=== PATIENT | female | born 1940 | race Caucasian/White ===

== ENCOUNTER 2023-02-23 11:23 | Inpatient (IN) | payer MEDICARE, OTHER ==
[~2023-02-23] VITALS: Ht 175.3 cm; Wt 72.3 kg
[2023-02-23] MEDS ORDERED: K-TAB ER20 MEQ PO (11:43)
[2023-02-23] MEDS ORDERED: ALTOPREV20 MG PO (11:43)
[2023-02-23] MEDS ORDERED: TRIAMTERENE-HC1 EAC3 PO (11:43)
[2023-02-23] MEDS ORDERED: LISINOPRIL20 MG PO (11:43)
[2023-02-23] MEDS ORDERED: FISH OIL 1,0001 EACH PO (11:44)
[2023-02-23] MEDS ORDERED: CALCIUM + D3 E1 EACH PO (11:44)
[2023-02-23 11:48] LABS: BASOPHILS 0.1 % (0-2); EOSINOPHILS 0.1 % (0-6); HEMATOCRIT 42.2 % (35.0-50.0); HEMOGLOBIN 14.2 g/dL (12.0-18.0); LYMPHOCYTES 3.3 % (24-44); MCH 30.5 (27-36); MCHC 33.6 g/dl (30-36); MCV 90.8 fl (81-99); MONOCYTES 2.2 % (0-12); NEUTROPHILS 94.3 % (39-80); PLATELET COUNT 218 K/uL (140-440); RBC 4.65 M/ul (4.3-5.7); RDW 15.2 (10.5-15.0)
[2023-02-23 12:09] LABS: ALBUMIN 2.3 g/dL (3.4-5.0); ALBUMIN/GLOBULIN RATIO 0.55 (1.1-2.4); ANION GAP 12.4 (7-21); BILIRUBIN, TOTAL 0.4 ng/dL (0.2-1.0); BUN/CREATININE RATIO 20.9 (6.0-28.6); CALCIUM 9.5 mg/dL (8.5-10.1); CREATININE, SERUM 1.1 mg/dL (0.55-1.02); MAGNESIUM 1.7 mg/dL (1.8-2.4); POTASSIUM 4.4 mmol/L (3.5-5.1); PROTEIN, TOTAL 6.5 g/dL (6.4-8.2)
[2023-02-23 12:51] LABS: INFLUENZA B NAA NEGATIVE (NEGATIVE); RESPIRATORY SYNCYTIAL VIR NAA NEGATIVE (NEGATIVE)
--- OUTSIDE RECORDS SUMMARY | 2023-02-23 14:08 | XMS ---
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 - 2 Visits in 30 Days CARE PROVIDERS AVINASH ZELAYA Family [facility] Current PHONE: Unknown MICHEL BARRIOS [facility]: Critical access hospital PHONE: Unknown STEFANI DUBOSE Family Medicine Current PHONE: Unknown Wilbert has no Care Guidelines for this patient. Silvio VISIT COUNT (12 MO.) [address] [place] [id number] BERNIE Graf TOTAL 3 NOTE: Visits indicate total known visits. ED/UCC VISIT TRACKING (12 MO.) 02/23/2023 11:25 [facility] [place] TYPE: Emergency COMPLAINT: - UTI, AMS, NO BOWEL FUNCTIONS, COUGH 02/15/2023 12:42 [facility] DREA DAY OR TYPE: Emergency 02/14/2023 17:35 [facility] DAY OR TYPE: Emergency INPATIENT VISIT TRACKING (12 MO.) No inpatient visits to display in this time frame [email or web address]
[2023-02-23 14:56] LABS: BILIRUBIN, URINE NEGATIVE (negative); BLOOD/HGB, URINE NEGATIVE (Negative); KETONE, URINE TRACE (Negative); LEUK ESTERASE, URINE NEGATIVE (negative); NITRITE, URINE NEGATIVE (negative)
[2023-02-23 15:05] LABS: CRYSTALS, URINE CALCIUM OXALATE 1+ (0-1+); EPITHELIAL CELLS, URINE SQUAMOUS 1+ /lpf (0-1+)
[2023-02-23 15:06] LABS: BACTERIA, URINE NONE SEEN /hpf (negative); CASTS, URINE NONE SEEN \\lpf; COLLECTION TYPE, URINE CLEAN CATCH; REFLEX CULTURE, URINE No (No)
[2023-02-23 18:49] VITALS: BP 123/62
--- NOTE | 2023-02-23 18:57 | NUR ---
RECEIVED REPORT FROM ED AT 1835. PATIENT BROUGHT TO THE FLOOR AT 1840 AND ADMISSION ASSESSMENT STARTED. X-RAY CMAE TO THE ROOM AT 1856. PATIENT STATED NO NEEDS AT THIS TIME. CALL LIGHT AND PERSONAL BELONGINGS ARE WITHIN REACH.
--- NOTE | 2023-02-23 20:32 | NUR ---
Patient is awake, alert and oriented x4. 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 Patient denies pain at this time. Patient is on 3L oxygen per nc, respirations non labored. Patient has a notable, loose/harsh cough. Patient has a pure wick in place. Call light within reach of patient. No current needs.
[2023-02-23 21:42] VITALS: BP 102/60
--- NOTE | 2023-02-24 00:57 | NUR ---
Patient has not voided yet. bladder scan for 683ml. Called Dr. Borjas to place hudson catheter at this time.
--- NOTE | 2023-02-24 01:23 | NUR ---
REPORT FROM CHAIM Stahl RN, PT ALERT AND ORIENTED TO QUESTIONS DISCUSSED NEED FOR ROLDAN CATHETER WITH PATIENT AT BEDSIDE REPORT. PATIENT AGREEABLE TO THIS.
--- NOTE | 2023-02-24 01:30 | NUR ---
ROLDAN CATHETER PLACED STERILE PROCEDURE MAINTAINED THROUGHTOUT PROCEDURE, PATIENT TOLERATED WELL, 10ML STERILE WATER PLACED TO BALLOON SCUREMENT. 1000ML URINE RETURNED.
--- NOTE | 2023-02-24 01:36 | NUR ---
CALLED TO DISCUSS WITH PATIENT REPORTING ACID REFLUX AT THIS TIME, HE SAID SHE IS MORE LIKLY ASPIRATING, OK TO GIVE PROTONIX 40MG IV AT THIS TIME.
[2023-02-24 02:09] VITALS: BP 114/61
[2023-02-24 05:48] LABS: BASOPHILS 0.1 % (0-2); EOSINOPHILS 0.1 % (0-6); HEMATOCRIT 36.2 % (35.0-50.0); HEMOGLOBIN 11.9 g/dL (12.0-18.0); LYMPHOCYTES 3.1 % (24-44); MCHC 32.9 g/dl (30-36); MCV 91.1 fl (81-99); MONOCYTES 2.5 % (0-12); NEUTROPHILS 94.2 % (39-80); PLATELET COUNT 168 K/uL (140-440); RBC 3.97 M/ul (4.3-5.7); RDW 15.2 (10.5-15.0)
[2023-02-24 05:56] VITALS: BP 106/55
[2023-02-24 05:57] LABS: ANION GAP 13.2 (7-21); BUN/CREATININE RATIO 24.03 (6.0-28.6); CALCIUM 8.9 mg/dL (8.5-10.1); CREATININE, SERUM 1.29 mg/dL (0.55-1.02); POTASSIUM 4.2 mmol/L (3.5-5.1)
--- NOTE | 2023-02-24 06:18 | NUR ---
PATIENT REPOSITIONED, LINENS CHANGED, NO NEW BLEEDING OR DRAINAGE NOTED. PATIENT ALERT AND REACHING/GRABBING FOR ROLDAN TUBE AND IV LINE, SHE GRABBED HAND THIS RN HANDS AND WOULD NOT LET GO WHEN ASKED, PATIENT TRIED TO SIT UP OUT OF BED, IV HALDOL PRN ADMINISTERED FOR AGITATION. SPOUSE AT BEDSIDE.
--- NOTE | 2023-02-24 06:46 | NUR ---
PATIENT REPOSITIONED AND BOOSTED UP IN BED. SHE HAS NO REQUESTS AT THIS TIME
--- NOTE | 2023-02-24 07:13 | NUR ---
VERBAL BEDSIDE REPORT RECEIVED FROM TIANNA SOTO. PT RESTS IN BED WITH EYES CLOSED, RESP EVEN AND UNLABORED. CONTINUOUS PULSE OXIMETER IN PLACE, PT SATS 91% ON RA, PULSE 76.
--- NOTE | 2023-02-24 09:32 | NUR ---
PHYSICAL THERAPY IN ROOM WORKING WITH PT.
--- NOTE | 2023-02-24 09:57 | NUR ---
SPUTUM SAMPLE COLLECTED AND SENT TO LAB.
--- NOTE | 2023-02-24 10:45 | NUR ---
Spoke with pt while she is wearing head phone hearing device. Pt speaks very slowly, able to understand if she can read my lips. Pt lives in [place] with her spouse. Spouse, DIL, and son assist patient every day with ADLS. Pt has walker, wc, ramp, raised toilet seat, shower chair, and grab bars. She is unable to remember if she has other DME. Family complete all the cooking, cleaning, shopping, and personal care for pt. Pt states she is unable to walk outside the house with her walker unless she has 1-2 people assisting her. Son and DIL live next door. Pt states they do use the food bank, they do not qualify for food stamps. They have no issues paying their utility bills. Pt plans on dc to home. Per MD and PT, they feel pt will need a SNF. I will discuss with family when they visit.
[2023-02-24 10:51] VITALS: BP 102/55
--- NOTE | 2023-02-24 10:58 | NUR ---
1028 - PHYSICAL THERAPIST REPORTS PT HAS DROOLING DURING ACTIVITY, WHICH THE PT REPORTS IS NEW FOR HER IN THE PAST FEW WEEKS. NIH COMPLETED. 1030 -CASE MANAGEMENT AND INTO SEE PT. MRI OF HEAD ORDERED. NIH SCORE OF 4 REPORTED TO .
--- NOTE | 2023-02-24 11:09 | NUR ---
MRI QUESTIONAIRE COMPLETED.
--- NOTE | 2023-02-24 11:18 | NUR ---
MS ROUNDS. SHORT VISIT. PATIENT NONCOMMUNICATIVE. PROVIDED PRAYER.
--- NOTE | 2023-02-24 11:27 | NUR ---
MS BARNEY. 15 MINUTES. PT USES POCKET TALKER TO HEAR BETTER. ABLE TO FOLLOW CONVERSATION. RESPONDES WERE SITUATIONALLY APPROPRIATE. PROVIDED HOSPITALITY. FACILITATED STORY TELLING. PROVIDED PRAYER.
--- NOTE | 2023-02-24 11:45 | NUR ---
PT TO IMAGING DEPARTMENT VIA WHEEL CHAIR FOR MRI.
--- NOTE | 2023-02-24 12:05 | NUR ---
Pt back from MRI, hany Ortega and Jose assisted this RN with transferring pt from MRI bed to hospital bed (pt able to assist by scooting across). HOB placed in position of comfort, call light, bedside table, and personal belongings in reach. Pt denied further needs at this time. SPO2 94% on room air at this time.
--- NOTE | 2023-02-24 13:05 | NUR ---
IS PROVIDED AT BEDSIDE. PT INSTRUCTED ON USE, VERBALIZES UNDERSTANDING.
[2023-02-24 14:38] VITALS: BP 104/58
--- NOTE | 2023-02-24 14:52 | EKG ---
[facility] [address] [place], [place] [address] Signed Normal sinus rhythm Nonspecific ST and T wave abnormality Abnormal ECG No previous ECGs available Confirmed by HERIBERTO TAVERAS MD ([id number]) on 02/24/2023 2:51:53 PM Electronically Signed By: HERIBERTO TAVERAS 02/24/23 1452 PATIENT NAME: MELCELENA LEE Electrocardiogram DATE OF : 38 PHYSICIAN: HERIBERTO TAVERAS REPORT #: [id number] REPORT IS CONFIDENTIAL AND NOT TO BE RELEASED WITHOUT AUTHORIZATION
--- NOTE | 2023-02-24 15:32 | NUR ---
SPOKE WITH DR TAVERAS REGARDING LEAKING IV. SAID HE WILL CHANGE HER TO PO AB AND SL. MAY TAKE OUT IV.
--- NOTE | 2023-02-24 16:17 | NUR ---
PT SITS UP IN, AWAKE AND ALERT. PT REQUESTS TO CALL SPOUSE, AUBREY. PHONE PROVIDED. NO FURTHER REQUESTS AT THIS TIME. CALL LIGHT IN REACH. BED IN LOW POSITION, BREAKS ON BED.
--- NOTE | 2023-02-24 16:51 | NUR ---
VANILLA PUDDING PROVIDED NEEDED PRIOR TO TAKING ORAL ANTIBIOTICS, eMAR.
--- NOTE | 2023-02-24 17:20 | NUR ---
medications reconciled using pharmacy records and patient interview
[2023-02-24 18:52] VITALS: BP 101/65
--- NOTE | 2023-02-24 20:26 | NUR ---
RN RECIEVED BEDSIDE REPORT. PT IS RESTING IN BED. VS COLLECTED AND REVIEWED. PT DENIES ANY PAIN AT THIS TIME. PT REFUSES REPOSITION AT THIS TIME. ROLDAN CATHETER CARE COMPLETED. GENERAL ASSESSMENT COMPLETED. ALL QUESTIONS AND CONCERNS ADDRESSED. CALL LIGHT IS WITH IN REACH. BED IS LOWERED AND IN LOCKED POSITION. BED ALARM IS ON AND GAURD RAILS ARE UP WITH PT REQUEST.
[2023-02-24 20:30] VITALS: BP 104/65
--- NOTE | 2023-02-24 21:36 | NUR ---
REMAINS ON RA, TAKING OFF RT SERVICE. PLEASE CALL WITH CONCERNS OR O2 USE.
--- NOTE | 2023-02-24 22:00 | NUR ---
PT IS RESTING IN BED. NO COMPLAINTS OF PAIN. PT REPOSITIONED. ALL QUESTIONS AND CONCERNS ADDRESSED. CALL LIGHT WITH IN REACH. BED IS LOWERED AND LOCK. / GAURD RAILS UP IN PLACE PER PT REQUEST. ROLDAN CATHETER EMPTYED.
--- NOTE | 2023-02-25 00:26 | NUR ---
PT IS RESTING IN BED. NO COMPLAINTS OF PAIN AT THIS TIME. CALL LIGHT IS WITH IN REACH. ALL CONCERNS AND NEEDS ADDRESSED AT THIS TIME. BED IS LOWERED AND LOCKED. BEDSIDE RAILS ARE UP PER PT REQUEST, BED ALARM IS ON.
--- NOTE | 2023-02-25 02:22 | NUR ---
PT IS RESTING IN BED. PT REPOSITIONED. ROLDAN EMPTIED. PT DENIES PAIN. ALL QUESTIONS AND CONCERNS ADDRESSED. CALL LIGHT WITH IN REACH. BED IS LOWERED AND LOCKED. 4/4 SIDE RAILS UP PER PT REQUEST.
--- NOTE | 2023-02-25 04:05 | NUR ---
PT IS RESTING IN BED. NO COMPLAINTS OF PAIN AT THIS TIME. CALL LIGHT WIHT IN REACH. BED IS IN A LOWERED AND LOCKED POSITION. 06/[address]
[2023-02-25 05:16] VITALS: BP 126/81
--- NOTE | 2023-02-25 06:30 | NUR ---
PT IS UP TO COMMODE, AND THEN UP TO CHAIR. CHAIR ALARM IS ON AND IN PLACE. PT IS ALERT THIS MORNING. HAD A SMALL BOWEL MOVEMENT. VS REVIEWED. CALL LIGHT IN REACH. NON SLIP SOCKS ON. NO COMPLAINTS OF PAIN AT THIS TIME. ALL QUESTIONS AND CONCERNS ADDRESSED.
--- NOTE | 2023-02-25 07:41 | NUR ---
REPORT RECEIVED FROM TIANNA GONZALES. PT UP TO CHAIR, DENIES PAIN AND NAUSEA. CONTIUES TO COUGH WITH SWALLOWING. DR ATVERAS UPDATED, NO NEW ORDERS A THIS TIME. CALL LIGHT WITHIN REACH. THIS RN ASSUMING CARE OF PT WITH TIANNA CHAU.
--- NOTE | 2023-02-25 07:41 | NUR ---
RECIEVED REPORT FROM TIANNA GONZALES. PT UP TO CHAIR AWAKE AND ALERT. PT STATES NO NEEDS AT THIS TIME, CALL LIGHT WITHIN REACH, FOOT OF CHAIR UP. ASSUMING CARE OF PT WITH TIANNA CHO.
--- NOTE | 2023-02-25 08:08 | NUR ---
PT REPORTS SHE HAS ONGOING DIFFICULITY WITH SWALLOWING "EVEN MY OWN SPIT." "SOMETIMES I CAN SPIT IT OUT BUT SOMETIMES IT GOES DOWN BEFORE I CAN GET IT OUT." MARSHES SIDING SWALLOW STUDY COMPLETED. PT UNABLE TO DEMONSTRATE DRY SWALLOWING. PT ATTEMPTS A SIP OF WATER AND BEINGS CHOAKING/COUGHING. FACE TURNS BRIGHT READ. SUCTION APPLIED TO ASSIST PT WITH CLEARING FLUIDS. PT CATCHES BREATH AND STATES "THAT HAPPENS ALL THE TIME." DR TAVERAS UPDATED. ORDERS GIVEN TO MAKE PT NPO. NEW IV MEDICATION ORDERS GIVEN, ORDERS ENTERED BY TIANNA CHO, REPEAT BACK PERFORMED. IV STARTED BY TIANNA CHO (SEE VASCULAR ACCESS). IVF STARTED PER ORDER. 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 PT CONTINUES TO HAVE GENERALIZED WEAKNESS, NO DIFFERENCE IN LEFT OR RIGHT SIDE. GRASP EQUAL IN BOTH HANDS. LUNG SOUNDS COARSE IN ALL LOBES, PT CONTINUES TO HAVE LOOSE PRODUCTIVE COUGH OF THICK YELLOW SPUTUM, EMESIS BAG AT BEDSIDE FOR SECRETIONS. PULSES STRONG IN ALL EXTREMETIES, +1 PITTING EDEMA REMAINS IN BLE. EXTREMETIES CONTINUE TO BE COOL TO THE TOUCH. BOWEL TONES HYPOACTIVE, LAST BM 02/22/23. PT DENIES HAVING ANY NAUSEA. ROLDAN IN PLACE, MARJORIE AREA WNL, QUANITITY SUFFICIENT CLEAR YELLOW URINE DRAINING VIA GRAVITY. PT SKIN INTACT WITH SCATTERED SMALL BRUISES. PT STATES NO FURTHER NEEDS AT THIS TIME, CALL LIGHT WITHIN REACH, FOOT OF CHAIR RAISED.
--- NOTE | 2023-02-25 08:40 | NUR ---
IV STARTED PER PROTOCOL. PT TOLERATED WELL. BRISK BLOOD RETURN SEEN FROM IV SITE. IV MEDICAITONS STARTED, FLUIDS TO FOLLOW. PT DENIES ADDITIONAL REQUESTS OR COMPLAINTS. PT UPDATED ON PLAN OF CARE AND NPO STATUS. CALL LIGHT WITHIN REACH. BED RAILS UP.
[2023-02-25 09:02] VITALS: BP 113/59
--- NOTE | 2023-02-25 09:10 | NUR ---
IV PUMP ALARMING. 1ST IV ABX COMPLETE. FLAGYL CONTINUES TO INFUSE. PT REMAINS UP TO CHAIR. PHSYCIAL THERAPY TO BEDSIDE TO WORK WITH PT. PT DENIES REQUESTS OR COMPLAINTS. CALL LIGHT WITHIN REACH.
--- NOTE | 2023-02-25 10:32 | NUR ---
HOURLY ROUNDING: PT UP TO CHAIR, FINISHING WORKING WITH OCCUPATIONAL THERAPY. PT REPORTS THRIST. BUT IS UNABLE TO SAFELY SWALLOW, MOUTH SWABS PROVIDED. PT UDPATED ON PLAN OF CARE AND PLAN FOR CARE CONFERENCE ONCE FAMILY ARRIVES. PT VERBALIZES UNDERSTANDING. PT DENIES ADDITIONAL REQUESTS OR COMPLAINTS. CALL LIGHT WITHIN REACH. PT REMAINS UP TO CHAIR.
--- NOTE | 2023-02-25 10:38 | NUR ---
Met with pt, spouse, and their friend Shweta. Pt consents to Shweta presence for discussion. Dr Zepeda explained pt has aspiration when eating. Gave options of IV nutrition or tube feeding. Pt is wearing her headphone hearing device. We stopped the conversation twice to ask pt if she agrees. is stating pt will have a feeding tube. Dr. Zepeda aswered questions and pt agrees she would like a feeding tube. He then discussed need for PT/OT as pt is deconditioned and requires 1-2 person assist to walk with her walker. Pt is in agreement. We discussed the SNF in [place] and they would like Kristie to go there on dc. Dr. Zepeda will contact Dr. Kelly for referral for Peg tube placement.
--- NOTE | 2023-02-25 10:48 | NUR ---
DR TAVERAS AND NEL, RN FROM CASE MANAGEMENT AT THE BEDSIDE TO DISCUSS PLAN OF CARE WITH PT AND FAMILY, FAMILY STATES IS OKAY TO DISCUSS PLAN OF CARE WITH FAMILY MEMBERS PRESENT. HEARING ASSISTIVE DEVICES USED BY PT DURING CONVERSATION. PT STATES NO NEEDS AT THIS TIME, CALL LIGHT WITHIN REACH, FOOT OF CHAIR RAISED, FAMILY AT THE BEDSIDE.
--- NOTE | 2023-02-25 11:10 | NUR ---
Called [facility] in [place]. They only take medicaid and self pay patients. She suggest I call [facility] or [facility] at 1-2 hrs farther than [place]. I called [facility] and they no longer have a SNF. They have a swingbed program, they are full and on divert. I called [facility]. They have a bed open, I faxed the chart [phone]. I returned and spoke with Aime and Jj. They requested I also try [facility] in [place]. Let them know [facility] may not have beds open at this time. I will contact both and check for bed. I also called [facility] and their SNF has closed. [facility] replied and they do not have beds. [facility] may have beds open on . Chart faxed to .
--- NOTE | 2023-02-25 11:15 | NUR ---
UR NOTE [facility] GENERAL OBSERVATION CARE (ISC) 02/24/23 MET OBSERVATION CARE ADMISSION CRITERIA [facility] PNEUMONIA DUE TO ASPIRATION ([facility]) INPATIENT 02/25/23 MET CLINICAL INDICATIONS FOR ADMISSION TO INPATIENT CARE GL DAY 1
--- NOTE | 2023-02-25 11:40 | NUR ---
MS ROUNDS. CASE MANAGEMENT IN WITH PATIENT. DID NOT INTERRUPT. PROVIDED PRAYER.
--- NOTE | 2023-02-25 12:07 | NUR ---
HOURLY ROUNDING. PUMP ALARMING, IV ABX COMPLETED, IVF STARTED PER ORDER. PT STATES NO FURTHER NEEDS AT THIS TIME, CASE MANAGEMENT AND FAMILY AT THE BEDSIDE. CALL LIGHT WITHIN REACH, FOOT OF CHAIR RAISED.
--- NOTE | 2023-02-25 12:10 | NUR ---
Called and spoke with pts son Bradley, and JEWEL Esposito. UPdate given. They are in agreement pts plan.
--- NOTE | 2023-02-25 13:06 | NUR ---
AFTERNOON ASSESSMENT. PT DENIES PAIN OR NAUSEA AT THIS TIME. SWALLOWING UNCHANGED FROM MORNING ASSESSMENT. PT IS FORGETFUL AT TIMES REGARDING PLAN, REORIENTED NEEDED. PT CONTINUES TO HAVE SOME DIFFICULTY FINDING WORDS AT TIMES. WEAKNESS IN ALL EXTREMETIES REMAINS, PT DENIES NUMBNESS OR TINGLING. PARTIAL GAZE PAULSY IN R EYE REMAINS UNCHANGED. LUNG SOUNDS CLEAR THIS AFTERNOON, PT CONTINUES TO COUGH, STATES SPUTUM PRODUCTION IS "ABOUT THE SAME". BOWEL TONES CONTINUE TO BE HYPOACTIVE. PT CONTINUES TO BE NPO, IVF CONTIUOUS PER ORDER, PT AND FAMILY UPDATED ON PLAN OF CARE, VERBALIZE UNDERSTANDING. ROLDAN CATHETER IN PLACE DRAINING QUANTITY SUFFICIENT CLEAR YELLOW URINE VIA GRAVITY. NO CHANGE IN SKIN SINCE MORNING ASSESSMENT. PT STATES NO FURTHER NEEDS AT THIS TIME, CALL LIGHT WITHIN REACH, FOOT OF CHAIR RAISED.
--- NOTE | 2023-02-25 14:23 | NUR ---
HOURLY ROUNDING AND MEDICATION DUE, GIVEN (SEE EMAR). PT UP TO CHAIR READING, DENIES PAIN OR NAUSEA. PT STATES NO NEEDS AT THIS TIME, CALL LIGHT WITHIN REACH, FOOT OF CHAIR RAISED.
[2023-02-25 14:25] VITALS: BP 132/77
--- NOTE | 2023-02-25 14:52 | NUR ---
PT HERE FOR LEUKOCYTOSIS. PT AMBULATING TO CHAIR VIA SBA W/FWW AND X2 PERSON ASSIST W/FWW TO THE BATHROOM. BEDSIDE SWALLOW EVAL DONE THIS SHIFT, PT UNABLE TO PASS EVAL, DIET CHANGED TO NPO. LAST BM 02/22/23, SCANT AMOUNT WITH CANVASS MANAGER REPORTED THIS MORNING. NIH SCORE OF 3 TODAY FOR MILD EXPRESSIVE APHASIA, PARTIAL GAZE PAULSY. ROLDAN CATHETER IN PLACE DRAINING QUANTITY SUFFICIENT CLEAR YELLOW URINE VIA GRAVITY. IV PLACED IN R FOREARM THIS SHIFT, IVF STARTED PER ORDER, IV ABX GIVEN PER ORDER (SEE EMAR). PEG TUBE PLACEMENT ANTICIPATED FOR TOMORROW. MEETING WITH DR TAVERAS, CASE MANAGEMENT AND FAMILY THIS MORNING, CASE MANAGEMENT WORKING TO FIND PLACEMENT FOR REHABILITATION AFTER DISCHARGE. PT USES CALL LIGHT APPROPRIATELY.
--- NOTE | 2023-02-25 15:53 | NUR ---
HOURLY ROUNDING. PT UP TO CHAIR READING. STATES SHE FELL ASLEEP FOR "A LITTLE BIT IN THE CHAIR AND DIDN'T KNOW WHERE I WAS AT FIRST WHEN I WOKE UP". PT STATES NO NEEDS AT THIS TIME, CALL LIGHT WITHIN REACH, FOOT OF CHAIR RAISED.
--- NOTE | 2023-02-25 17:05 | NUR ---
HOURLY ROUNDING. PT UP TO CHAIR READING, REQUESTS HELP CALLING DAUGHTER IN [place] ON HOSPITAL PHONE, THIS RN ASSISTS PT WITH DIALING NUMBER TO CALL. PT STATES NO FURTHER NEEDS AT THIS TIME, CALL LIGHT WITHIN REACH, FOOT OF CHAIR RAISED.
[2023-02-25 17:25] VITALS: BP 146/78
--- NOTE | 2023-02-25 17:50 | NUR ---
DIATHERMY EQUIPMENT REPAIRER REPORTS DIFFICULTY GETTING A TEMPERATURE READING FROM PT. DRIER BELT CONVEYOR, CHARLES, TO BEDSIDE, TEMPERATURE 95 DEGREES, TAKE IN MULTIPLE MODES (TYMPANIC, AXILLARY, ORAL, IN GROIN). WARM BLANKETS PLACED. BEAR HUGGER RETRIEVED FROM SURGERY AND PLACED. DR. TAVERAS CALLED. ORDERS GIVEN FOR BEAR HUGGER AND TSH LABS. NO ADDITIONAL NEW ORDERS AT THIS TIME. PT REMAINS ALERT AND OREINTED. REQUESTS TO GET BACK TO BED. 2 PERSON ASSIST PIVOT BACK TO BED. WARM BLANKETS REAPPLIED. PT REPORTS FEELING "COMFY." LAB TO BEDSIDE FOR LABS. NO ADDITIONAL REQUESTS OR COMPLAINTS. CALL LIGHT WITHIN REACH. BED RAILS UP.
--- NOTE | 2023-02-25 18:22 | NUR ---
THIS RN TO ROOM TO CHECK ON PT. PT REMAINS UNDER BLANKETS IN BED. PT REPORTS SHE DOES NOT FEEL COLD BUT THAT THE WARM BLANKETS "FEEL GOOD." WARMED BAG OF LR RETRIVED FROM ER AND HUNG TO REPLACE CURRENT BAG OF LR. PT CONTINUES TO DENY PAIN AND NAUSEA. NO COUGH HEARD AT THIS TIME. TEMPERATURE REASSESSED NOW 96.5 TEMPORALLY AND 94.7 ORALLY. PT DENIES ADDITIONAL REQUESTS OR COMPLAINTS. CALL LIGHT WITHIN REACH. BED RAILS UP.
--- NOTE | 2023-02-25 18:40 | NUR ---
LAB RESULTS IN. DR. TAVERAS CALLED AND UPDATED. NEW LAB ORDERS PLACED BY DR. TAEVRAS. NO ADDITIONAL NEW ORDERS. PT STATUS UNCHANGED.
--- NOTE | 2023-02-25 18:57 | NUR ---
DR TAVERAS UPDATED ON PT STATUS. PTS TEMPERATURE REMAINS LOW. NEW MEDICATION ORDERS PLACED, MEDICATIONS GIVEN (SEE MAR). ORDRES FOR TELEMETRY, ORDERS ENTERED, REPEAT BACK PERFORMED. TELEMETRY PLACED. PT STATUS UNCHANGED. PT UPDATED ON PLAN OF CARE. PT VERBALIZES UNDERSTANDING AND STATES HER QUESTIONS HAVE BEEN ANSWERED. CALL LIGHT WITHIN REACH. BED RAILS UP.
--- NOTE | 2023-02-25 19:10 | NUR ---
REPORT RECIEVED FROM MARQUIS WYNN AND KANDI WYNN. PATIENT RESTING IN BED WITH EYES CLOSED. IVF INFUSING PER ORDER. RESP OBSERVED. BOARD UPDATED. CALL LIGHT WITHIN REACH. NO NEEDS AT THIS TIME.
[2023-02-25 20:33] VITALS: BP 116/61
--- NOTE | 2023-02-25 20:56 | NUR ---
ASSESSMENT AND VITAL SIGNS DONE. PATIENT RESTING IN THE BED. ROLDAN EMPTIED. WARM IVF INFUSING. pt TEMP AT 94.5 RECTALLY, DR. TAVERAS AWARE. BARE HUGGER RUNNING UNDER BLANKETS. IV SITE, WNL. DR. TAVERAS STATED WE COULD USE A KPAD FOR THE PATIENT. CALL LIGHT WITHIN REACH. NO OTHER NEEDS AT THIS TIME.
--- NOTE | 2023-02-25 21:04 | NUR ---
Patient assisted from chair to bed with one person assist and FWW. tolerated well. continous pulse ox on and sats have remained >92%. Patient states he is comfortable, lights are out and call light within reach.
[2023-02-25 21:17] LABS: BASOPHILS 0.3 % (0-2); EOSINOPHILS 0.4 % (0-6); HEMATOCRIT 35.3 % (35.0-50.0); HEMOGLOBIN 11.8 g/dL (12.0-18.0); LYMPHOCYTES 9.3 % (24-44); MCH 30.1 (27-36); MCHC 33.4 g/dl (30-36); MCV 90.2 fl (81-99); MONOCYTES 4.1 % (0-12); NEUTROPHILS 85.9 % (39-80); PLATELET COUNT 178 K/uL (140-440); RBC 3.92 M/ul (4.3-5.7); RDW 15.2 (10.5-15.0)
[2023-02-25 23:58] VITALS: BP 123/61
--- NOTE | 2023-02-26 | NUR ---
ASSESSMENT AND VITAL SIGNS DONE. pt STATES SHE WOKE UP AND GOT SCARED BECAUSE SHE THOUGHT IT WAS NOON AND NO ONE WAS THERE. THIS RN REORIENTATED pt TO TIME, pt WAS THEN APPRECIATIVE AND WANTED TO SLEEP SOME MORE. CALL LIGHT WITHIN REACH. NO OTHER NEEDS AT THIS TIME. pt TEMP 98.7 ORALLY.
--- NOTE | 2023-02-26 00:58 | NUR ---
UPDATED DR. TAVERAS WITH pt CURRENT TEMP AND HR. THIS RN WILL CONTINUE TO MONITOR pt.
--- NOTE | 2023-02-26 01:34 | NUR ---
CHECKED IN ON PT, AWAKE, STATES SHE COUGHED AND MISSED THE EMESIS BASIN. CHANGED BLANKET, COVERED IN SHEET, SKIN WARM TO TOUCH, DRY. WITH HEARING ASSIST DEVICE, CONVERSATION WITH PT, EXPLAINED THE PLAN OF CARE, LABS THIS MORNING, SHE STATED SHE DIDN'T KNOW WHAT WAS GOING ON, WAS SCARED. EDUCATED ON WHAT WE KNEW, AND HOPING TO SEE WITH THE MORNING LABS. PT STATED SHE IS NOT SLEEPY, SAYS SHE FEELS LIKE SHE HAS BEEN ASLEEP "FOR A WEEK", READING BOOKS AND GLASSES WITHIN REACH, WELL THE SUCTION. PT USING SUCTION PRIOR TO THIS RN LEAVING. NO OTHER NEEDS
--- NOTE | 2023-02-26 01:52 | NUR ---
WENT IN pt RM TO CHECK ON pt, HER HR WAS AT 108 AND POSSIBLE ARTIFACT ON THE TELE. pt WAS CLEANING HER GLASSES AT THE TIME SO SHE COULD SEE BETTER TO READ HER BOOK. pt RESTING IN BED.
[2023-02-26 03:56] VITALS: BP 128/68
--- NOTE | 2023-02-26 04:00 | NUR ---
ASSESSMENT AND VITAL SIGNS DONE. ROLDAN EMPTIED. KPAD REMOVED. pt TEMP AT 98.3 AND HR AT 95. pt STATES SHE WANTS THE LIGHT TURNED OFF AND THE HEAD OF THE BED LOWERED. SUCTION AVAILABLE FOR PHLEGM. CALL LIGHT WITHIN REACH. HOB LOWERED AND LIGHT TURNED OFF. NO OTHER NEEDS AT THIS TIME.
[2023-02-26 05:17] LABS: BASOPHILS 0.3 % (0-2); EOSINOPHILS 0.2 % (0-6); HEMOGLOBIN 12.2 g/dL (12.0-18.0); LYMPHOCYTES 7.9 % (24-44); MCH 30.2 (27-36); MCHC 33.1 g/dl (30-36); MCV 91.1 fl (81-99); MONOCYTES 4.7 % (0-12); NEUTROPHILS 86.9 % (39-80); PLATELET COUNT 182 K/uL (140-440); RBC 4.06 M/ul (4.3-5.7); RDW 15.2 (10.5-15.0)
[2023-02-26 05:31] LABS: ALBUMIN 1.9 g/dL (3.4-5.0); ALBUMIN/GLOBULIN RATIO 0.54 (1.1-2.4); ANION GAP 14.7 (7-21); BILIRUBIN, TOTAL 0.4 ng/dL (0.2-1.0); BUN/CREATININE RATIO 25.19 (6.0-28.6); CREATININE, SERUM 1.31 mg/dL (0.55-1.02); POTASSIUM 3.7 mmol/L (3.5-5.1); PROTEIN, TOTAL 5.4 g/dL (6.4-8.2)
--- NOTE | 2023-02-26 05:50 | NUR ---
IV ABX INFUSING PER ORDER, SEE MAR. pt TEMP LOW IN BEGINNING OF SHIFT AT 94.5 RECTALLY, BEAR HUGGER AND KPAD PLACED AND NOW IT IS AT 98.[address] DUE TO RETENTION. 1-2 PA AT BASELINE. pt ABLE TO MOVE WELL IN THE BED. pt UP MOST OF THE NIGHT AND FORGETFUL.
--- NOTE | 2023-02-26 07:40 | NUR ---
REPORT RECIEVED FROM TIANNA METCALF. PT LYING IN BED AWAKE AND ORIENTED TO ALL. PT STATES NO NEEDS AT THIS TIME, CALL LIGHT WITHIN REACH, BED RAILS UP.
--- NOTE | 2023-02-26 08:15 | NUR ---
Updated by Dr. Zepeda and he would like this pt transferred to higher level of care if a bed is available due to her multiple comorbidities. Second plan would be for the pt to go to a SNF in the area of her choice with Neuro and endocrinology near. Called Pts spouse and he would like to speak with Dr. Zepeda. Texted Dr huynh and spouses phone number.
--- NOTE | 2023-02-26 08:26 | NUR ---
MORNING ASSESSMENT AND MEDICATIONS DUE, GIVEN (SEE EMAR). PT DENIES ANY PAIN OR NAUSEA AT THIS TIME. PT A+O TO ALL THIS MORNING, CONTINUES TO HAVE SOME TROUBLE FINDING WORDS, NEEDS TIME TO COME UP WITH WHAT SHE IS TRYING TO SAY. PT CONTINUES TO HAVE WEAKNESS IN ALL EXTREMETIES, ABLE TO GRASP WITH BOTH HANDS EQUALLY. LUNG SOUNDS CLEAR IN ALL LOBES, PT REPORTS SHE CONTINUES TO HAVE COUGH, BUT HAS TROUBLE COUGHING UP THE SPUTUM AT TIMES, SPUTUM CONTINUES TO BE THICK AND YELLOW PER PT. PT ON RA, ASPIRATION PRECAUTIONS IN PLACE. TELE #[address], NSR WITH HR IN THE 70s-80s PER TELE. +1 PITTING EDEMA PRESENT IN LLE, GENERALIZED EDEMA PRESENT IN RLE. PULSES STRONG IN ALL EXTREMETIES, PT DENIES ANY NUMBNESS OR TINGLING. BOWEL TONES ACTIVE, NO BM TODAY. PT CONTINUES TO BE NPO, IVF RUNNING PER ORDER. ROLDAN CATHETER REMAINS IN PLACE, DRAINING QUANTITY SUFFICIENT CLEAR YELLOW URINE VIA GRAVITY. NO CHANGE IN SKIN ASSESSMENT COMPARED TO PREVIOUS, PT BUTTOCKS NOT SEEN SHE IS RESTING IN BED. PT USED HEARING ASSISTIVE DEVICES DURING THIS ASSESSMENT. ORAL TEMPERATURE 97.4 DURING ASSESSMENT.
--- NOTE | 2023-02-26 08:40 | NUR ---
Discussed in 829 meeting. would like pt transferred if possible or placed in SNF near [place], [place] to have TPN until stable for feeding tube or able to eat. I contacted [facility], [facility], [facility]. All deny bed availability any time in the near future. I then contacted [facility] in [facility] and [facility]. Both are out at least 2 weeks, but suggested I send a chart in case something happens and they have an opening. I then contacted [facility] in [place] in [place], [place]. They requested I email the chart to their admissions person at [email or web address]. Chart was emailed and faxed to the last three facilities.
--- NOTE | 2023-02-26 09:32 | NUR ---
MS SAVITA. PT EXHIBITED DIFFICULTY FOLLOWING CONVERSATION. SHORT VISIT. PROVIDED PRAYER.
[2023-02-26 09:37] VITALS: BP 125/81
--- NOTE | 2023-02-26 09:37 | NUR ---
IN TO ROUND ON PT. PT LAYING IN BED. PT RESPONDS WHEN ADDRESSED. VITALS AND I&Os COMPLETE. PT DENIES ANY OTHER NEEDS AT THIS TIME. CALL [facility].
--- NOTE | 2023-02-26 09:55 | NUR ---
IN TO OBTAIN BG. PT LAYING IN BED. PHYSICAL THERAPY IN ROOM. PT RESPONDS WHEN ADDRESSED. BG OF 68 NOTED. PT DENIES FEELING LIGHT HEADED OR DIZZY AT THIS TIME. NO OTHER NEEDS FROM THIS RN AT THIS TIME. PHYSICAL THERAPY IN ROOM.
--- NOTE | 2023-02-26 09:59 | NUR ---
THIS RN CALLS DR TAVERAS TO UPDATE ON PT STATUS AND ASSESSMENT. MD PLACING NEW ORDERS AT THIS TIME.
[2023-02-26 10:18] LABS: INR 1.47 (0.80-1.30); PROTIME 17.2 Sec (11.2-14.2)
[2023-02-26 10:21] LABS: CHOLESTEROL/HDL RATIO 2.1; MAGNESIUM 2.1 mg/dL (1.8-2.4)
--- NOTE | 2023-02-26 10:28 | NUR ---
PT UP TO CHAIR WITH PHYSICAL THERAPY. PT DECLINES ANY SYMPTOMS OF HYPOGLYCEMIA. NEW IVF AND FLUID BOLUS ADMINISTERED PER MD ORDER. ROLDAN CARE COMPLETED. PT STATES NO FURTHER NEEDS AT THIS TIME, CALL LIGHT WITHIN REACH, FOOT OF CHAIR RAISED, HEARING ASSISTIVE DEVICES IN USE.
--- NOTE | 2023-02-26 10:49 | NUR ---
IN WITH RANCHO Wang RN PT REQUESTING TOILETING. 1PA WITH FWW FROM RECLINER TO BSC. PT REQUESTING SOME PRIVACY. PT INFORMED TO USE CALL LIGHT WHEN READY. PT VERBALIZES UNDERSTANDING. CALL LIGHT IN REACH.
--- NOTE | 2023-02-26 11:05 | NUR ---
IN WITH RANCHO Wang, TO ANSWER CALL LIGHT. PT READY TO GET OFF BSC AND INTO BED FOR PICC PLACEMENT. 1PA WITH FWW FROM BSC TO BED. NO BM NOTED. NEW ATTENDS PLACED. BUTTOCKS NOTED TO HAVE REDNESS, BLANCHABLE. PT IN BED. KANDI Ramirez RN IN ROOM. BG TAKEN AND NOTED TO BE 202. NO OTHER NEEDS FROM THIS RN AT THIS TIME. RANCHO Wang RN AND KANDI Ramirez RN IN ROOM WITH PT FOR PICC PLACEMENT.
--- NOTE | 2023-02-26 12:25 | NUR ---
PICC LINE INSERTION WAS ASKED TO PLACE A PICC LINE THE PT IS NEEDING TPN SHE IS UNABLE TO SWALLOW AND EAT WITHOUT ASPIRATING. PT'S RIGHT ARM WAS EXAMINED. THE BRACHIAL AND BASILIC VEINS WERE IDENTIFIED. UNABLE TO VISUALIZE THE CEPHALIC VEIN. THE BASILIC VEIN WAS CHOSEN THE BEST OPTION IT IS LARGE ENOUGH TO TAKE THE 4 FR PICC. ACCORDING TO SITE GISELL 8 THE PICC WILL TAKE UP APPROXIMATELY 30% OF THE VEIN. THE VEIN WAS ACCESSED ON THE FIRST ATTEMPT. THE GUIDEWIRE, INTRODUCER, AND PICC LINE EASILY ADVANCED UP THE VEIN. RED, NON- PULSITILE BLOOD RETURNED EASILY. THE PICC LINE WAS DRESSED. CHEST XRAY COMPLETE. REPORT GIVEN TO CORTES SCOTT RN.
--- NOTE | 2023-02-26 12:28 | CONS ---
[facility] [address], [place] [address] Signed DATE OF CONSULTATION: 02/26/2023 CHIEF COMPLAINT: Esophageal dysphagia. HISTORY OF PRESENT ILLNESS: Kristie is an 82-year-old female, who apparently spent her whole life living in [place], [place]. 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 She has had two sons, one was . Her other son is behind her in another house. In the last year it sounds like some of her health started to decline and even worse in the last three weeks. They generally go down to [place], [place] to the hospital there for evaluation. She had been over to [facility] in [place], [place] to see Dr. Alan as a neurosurgeon. There was some concern she might have increased intercerebral pressure. He did not feel that was the case, and she had been sent back home. She had been in the hospital a week or so ago at [place] and found to have urinary tract infection. She has been on nitrofurantoin, but she was getting more weak, having a productive cough and it seemed like her speech was more slurred than usual. Her decided to bring her up here to [facility] in [place], [place]. In the ER, she was seen and examined and found to have an increased white blood count around 23,000. Chest x-ray showed bronchial wall thickening, so she was given azithromycin along with Rocephin and Flagyl. CT scan of her head did not show any acute concerns. She has been admitted to the hospitalist service. She seems to have had a stroke in the past, this certainly affects her left arm and to some extent her left leg as well. She talks about something in her brain may be a brain aneurysm, but to my knowledge it has not been clipped. 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 She is at least one assist if not two assist just to stand with the walker. 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 She started on some Synthroid and that made an improvement in her blood pressure and her heart rate already. Of course, her albumin was low at 2.3 and is now down to 1.9. I had been asked to see her for consideration of possible PEG tube placement. She tells me she has been two colonoscopies in the past, but never had upper endoscopy. From what I can tell, this dysphagia is fairly new in the last three weeks. 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 PAST SURGICAL HISTORY: Includes partial hysterectomy for a noncancerous issue, bilateral total hip replacements, and colonoscopies. SOCIAL HISTORY: Not sure about her smoking or alcohol history. She lives in [place], [place], about 2 Electronically Signed By: STEFANI QUIROS MD 02/26/23 1228 PATIENT NAME: KRISTIE LEAL CONSULTATION DATE OF : 38 REPORT #: [id number] PHYSICIAN: STEFANI QUIRSO MD PCP: AVINASH CABRERA MD REPORT IS CONFIDENTIAL AND NOT TO BE RELEASED WITHOUT AUTHORIZATION [facility] [address] [place] [id number] Signed hours out of our hospital. She generally goes to the [facility] in [place], [place]. She is to her , Jj at . She had two boys, one has . Her son, Gene still living in the house behind them at . She has to use a walker to get around the house or hold onto the furniture. She also gave the name of her lens engraver, Ed at . It sounds like her primary care provider is Avinash Cabrera, I think in [place], [place], but possibly been to [place] at . FAMILY HISTORY: None. REVIEW OF SYSTEMS: She had 10 systems reviewed with the help of her temporary hearing aids here at the hospital and that really helped. She answers slowly, but generally appropriately. We uncovered some of her past medical history through that conversation as well as her social history. ALLERGIES: Morphine. MEDICATIONS: Lisinopril 20 mg p.o. daily, triamterene/hydrochlorothiazide (37.5/25) one p.o. daily, potassium chloride 20 mEq one p.o. daily, lovastatin 20 mg one p.o. daily, fish oil/Omega3 one p.o. daily and calcium/vitamin-D one p.o. daily. PHYSICAL EXAMINATION: VITAL SIGNS: Her blood pressure is 128/68, heart rate 93, respiratory rate 18, temperature is 98.3, and she is 95% on 2 L nasal cannula. She is 5 feet 9 inches tall, 72 kg with a body mass index of 23. GENERAL: Kristie is an 82-year-old female lying supine, semi-recumbent in her hospital bed. I can see that the left side of her face droops a little one she does for her speech a little. I can tell that her left arm is not as strong where as mobilize the right. She is very hard of hearing, so we had to provide her with temporary hearing aids. LUNGS: Generally clear anteriorly, but some rhonchi on the right. HEART: Regular rate and rhythm without murmurs. ABDOMEN: Soft, flat, nontender. LABORATORY DATA: Her white blood cell count was 23, is down to 8.3 and hemoglobin is 14, is down to 12. Creatinine is 1.3, it was 1.1. Her alkaline phosphatase is up a little at 245, but AST and ALT are fine. Albumin is 1.9. Lactic acid is 0.9. TSH is up at 5.1, but the free T4 is good at 1.13. BNP is 252. COVID was negative along with influenza A and B and the sputum culture showed some white blood cells and some gram positive cocci. Electronically Signed By: STEFANI QUIROS MD 02/26/23 1228 PATIENT NAME: KRISTIE LEAL CONSULTATION DATE OF : 38 REPORT #: [id number] PHYSICIAN: STEFANI QUIROS MD PCP: AVINASH CABRERA MD REPORT IS CONFIDENTIAL AND NOT TO BE RELEASED WITHOUT AUTHORIZATION [facility] [address], [place] [address] Signed RADIOGRAPHIC STUDIES: Chest x-ray showed bronchial wall thickening. CT scan of the head shows some microcalcifications, but no acute findings. ASSESSMENT AND PLAN: Kristie is an 82-year-old female, who has developed some level of esophageal dysphagia last few weeks and now has aspiration pneumonia. She also has what looks like central hypothyroidism. I had a long conversation with Kristie, our nursing staff and our hospitalist, Dr. Zepeda. There is some thought that as her hypothyroidism recovers, her swallowing should recover as well. This is Wednesday and we do not have Speech Therapy available for modified barium swallow. It does not look like she has had an acute stroke. There is some concern that she is not really go obviously back to her home. The family is talking about detention in [place], [place], [place]. That might be fine for a few weeks and see if her esophageal dysphagia will recover as the hypothyroidism is corrected. I think at this point rather than sedate her for a PEG tube, she would be better off with a PICC line at least for a few weeks and so she can get past the pneumonia and hypothyroidism. She has been bradycardic, hypotensive and even almost decreased level of consciousness when she first came. It sounds like she is already getting better. We at least save her from have an invasive procedure, and if in a few weeks, it is determined that she is going to need more long-term nutritional access, then she and the family could decide on the PEG tube at that time. I have reviewed this with Kristie, the nurse and Dr. Zepeda, everyone is in agreement. In the meantime, we will try to track down some more her records and talk to her family. Stefani Quiros MD ALB/MODL /[id number] cc: MD Stefani Junior MD Copies: AVINASH CABRERA MD Electronically Signed By: STEFANI QUIROS MD 02/26/23 1228 PATIENT NAME: KRISTIE LEAL SHARON CONSULTATION DATE OF : 38 REPORT #: [id number] PHYSICIAN: STEFANI QUIROS MD PCP: AVINASH CABRERA MD REPORT IS CONFIDENTIAL AND NOT TO BE RELEASED WITHOUT AUTHORIZATION [facility] [address] [place], [place] [address] Signed STEFANI QUIROS MD ~ Electronically Signed By: STEFANI QUIROS MD 02/26/23 1228 PATIENT NAME: KRISTIE LEAL SHARON CONSULTATION DATE OF : 38 REPORT #: [id number] PHYSICIAN: STEFANI QUIROS MD PCP: AVINASH CABRERA MD REPORT IS CONFIDENTIAL AND NOT TO BE RELEASED WITHOUT AUTHORIZATION
--- NOTE | 2023-02-26 12:48 | NUR ---
PICC LINE PLACEMENT COMPLETE AND VARIFIED FOR USE BY RANCHO PICC LINE RN. PT TOELRATED PROCEEDURE WELL. PT DENIES PAIN OR NAUSEA AT THIS TIME. TEMPERATURE NOTED TO BE TRENDING DOWN. DIFFICULTY MEASUREING TEMPERATURE ALTHOUGH EVENTUALLY FOUND TO BE 97.1 ORALLY. BEAR HUGGER WARMTH AND WARM BLANKET PROVIDED. K PAD PLACED. PT DENIES FEELINGS OF COLD. ARMS, TORSO, HANDS AND FEET NOTED TO BE COOL TO THE TOUCH. IV FLUIDS RESUMED. NO ADDITIONAL REQUESTS OR COMPLAINTS. CALL LIGHT WITHIN REACH. PTS PRIMARY RN UPDATED.
--- NOTE | 2023-02-26 13:11 | NUR ---
PTS CALLED AND REQUESTS TO TALK WITH PT ON THE PHONE. PT ASSISTED WITH PHONE CALL. HEARING ASSISTANCE USED. PT DENIES ADDITIONAL REQUESTS OR COMPLAINTS. CALL LIGHT WITHIN REACH. BED RAILS UP.
--- NOTE | 2023-02-26 13:28 | NUR ---
HOURLY ROUNDING. PT ON PHONE WITH , SITTING UP IN BED AWAKE AND ALERT. CALL LIGHT WITHIN REACH, BED RAILS UP.
--- NOTE | 2023-02-26 13:43 | NUR ---
THIS RN RECEIVED VERBAL ORDER FROM DR. TAVERAS ORDERS ENTERED. VERIFIED WITH READBACK.
--- NOTE | 2023-02-26 13:50 | NUR ---
Dr. Zepdea stopped by and gave update no acceptance at this time for a transfer. I updated the SNFs I have contacted. Plan at this time for pt to received TPN through the weekend. Possible dc to our SNF in [place] if they are able to take pts next week or cont. to try placement closer to [place].
--- NOTE | 2023-02-26 13:58 | NUR ---
MEDICATION DUE. GIVEN ORDRED. PTS BLOOD SUGAR 111 AT THIS TIME, NO INSULIN NEEDED. PT CONTINUES TALKING WITH HER ON THE PHONE. AUBREY REQUESTS AN UPDATE. PT AGREES THAT AUBREY SHOULD BE UPDATED. AUBREY UPDATED ON PT STATUS AND PLAN OF CARE AT THIS TIME, AUBREY VERBALIZES UNDERSTANDING AND STATE HIS QUESTIONS HAVE BEEN ANSWERED. TEMPERATURE REASSESSED, NOW 97.3 ORALLY AND 98.0 TEMPORALLY. BEAR HUGGER AND K PAD REMAIN IN PLACE. PT ALERT AND ORIENTED AND ASKING APPROPRIATE QUESTIONS. PT DENIES ADDITIONAL REQUESTS OR COMPLAINTS. CALL LIGHT WITHIN REACH. BED RAILS UP.
[2023-02-26 14:31] VITALS: BP 120/65
--- NOTE | 2023-02-26 14:31 | NUR ---
IN TO OBTAIN VITALS AND I&Os. PT SITTING UP IN RECLINER. PT RESPONDS WHEN ADDRESSED. VITALS AND I&Os COMPLETE. PT DENIES ANY OTHER NEEDS AT THIS TIME. CALL LIGHT IN REACH.
--- NOTE | 2023-02-26 16:05 | NUR ---
DISCUSSED WITH MD ABOUT PT TPN AND FAT EMULSION. DUE TO PT BEING TRANSFERRED NOT ADMINISTERING AT THIS TIME. VERIFIED WITH READBACK.
--- NOTE | 2023-02-26 16:13 | NUR ---
IN TO ROUND ON PT. PT SITTING UP IN RECLINER. PT RESPONDS WHEN ADDRESSED. PT DENIES ANY OTHER NEEDS AT THIS TIME. CALL LIGHT IN REACH.
--- NOTE | 2023-02-26 16:35 | NUR ---
PT ACCEPTED FOR TRANSFER AT [facility] IN [facility]. REPORT CALLED TO TIANNA CARDOZA. QUESTIONS ASKED AND ANSWERED. AUBREY, PTS , AND DATUGHER IN LAW, THAI, CALLED AND UPDATED ON PT STATUS AND PLAN FOR TRANSFER, BOTH VERBALIZE UNDERSTANDING AND STATE THEIR QUESTIONS HAVE BEEN ANSWERED.
--- NOTE | 2023-02-26 16:38 | NUR ---
IN TO COMPLETE ASSESSMENT. PT SITTING UP IN RECLINER PT RESPONDS WHEN ADDRESSED. ASSESSMENT COMPLETE. PT DENIES PAIN AT THIS TIME. PT DENIES NUMBNESS OR TINGLING AT THIS TIME. LUNG SOUNDS CLEAR. PT REQUESTING TO BE READJUSTED IN RECLINER. PT STANDS UP FROM RECLINER TO ADJUST POSITIONING. PT SITS BACK IN RECLINER. PT DENIES ANY OTHER NEEDS AT THIS TIME. CALL LIGHT IN REACH. CHAIR ALARM ON.
--- NOTE | 2023-02-26 17:00 | NUR ---
EMS ARRIVED TO TRANSPORT PT TO [facility]. PT VERBALIZES UNDERSTANDING OF PLAN OF CARE. REPORT GIVEN TO PRESENT, PARAMETIC, WHO STATES HIS QUESTIONS HAVE BEEN ANSEWRED. IV FLUIDS CONTINUE. WARM BLANKETS PLACED. PT TRANSFERED TO [facility] WITH 2 PERSON ASSIST AND PIVOT. NO ADDITIONAL REQUESTS OR COMPLAINTS. PT WHEELED FROM MED/SURG BY EMS ALICE.
[2023-02-28 03:07] LABS: PREALBUMIN 11.4 mg/dL (20.0-40.0)
== END 2023-02-26 17:00 | disposition short-term general hospital (02) | DRG 179 ==
LOC: ED 11:23 → MS 11:26
PROVIDERS: Colon & Rectal Surgery; Emergency Medicine; ADMIT Internal Medicine; ATTEND Internal Medicine
PROC: 02HV33Z Insertion of Infusion Device into Superior Vena Cava, Percutaneous Approach (ICD-10-PCS; principal; 2023-02-24)
DX: J69.0 Pneumonitis due to inhalation of food and vomit (principal); R13.10 Dysphagia, unspecified; I10 Essential (primary) hypertension; R47.81 Slurred speech; E78.5 Hyperlipidemia, unspecified; R09.02 Hypoxemia; E03.9 Hypothyroidism, unspecified; R00.1 Bradycardia, unspecified; I95.9 Hypotension, unspecified; E66.9 Obesity, unspecified; R29.810 Facial weakness; R68.0 Hypothermia, not associated with low environmental temperature; Z79.899 Other long term (current) drug therapy; Z88.5 Allergy status to narcotic agent; Z11.52 Encounter for screening for COVID-19; Z90.710 Acquired absence of both cervix and uterus; Z87.440 Personal history of urinary (tract) infections; Z96.643 Presence of artificial hip joint, bilateral; Z98.890 Other specified postprocedural states; Z68.22 Body mass index [BMI] 22.0-22.9, adult
CPT/HCPCS: 10060; 36415; 36569; 51702; 51798; 70450; 70551; 71045; 80048; 80053; 80061; 81001; 83605; 83735; 83880; 84134; 84439; 84443; 84484; 85025; 85060; 85610; 85730; 87040; 87070; 87205; 87502; 93005; 93010; 94640; 94762; 96365; 96375; 96376; 97110; 97116; 97162; 97166; 97530; 97535; 99285-25; A9270; C1751; C9113; G0378; J0696; J3475; J7040; J7121; U0002